=== PATIENT | male | born 1990 | race Caucasian/White ===

== ENCOUNTER 2021-04-07 21:24 | Emergency (ER) | payer OTHER ==
[2021-04-07 21:49] VITALS: BP 122/62; PULSE 75; TEMP 99.1; BMI 38.0
== END 2021-04-07 22:36 | disposition home or self-care (01) ==
LOC: JERFT 21:24
DX: L30.9 Dermatitis, unspecified (principal); B35.3 Tinea pedis; L94.2 Calcinosis cutis
CPT/HCPCS: 99282-25